=== PATIENT | female | born 1975 | race Caucasian/White ===

== ENCOUNTER 2018-06-09 13:37 | Emergency (ER) | payer OTHER ==
[2018-06-09] MEDS: NAPROXEN 250 MG TAB PO (15:13)
== END 2018-06-09 15:24 | disposition home or self-care (01) ==
LOC: M ED 13:37
DX: S33.5XXA Sprain of ligaments of lumbar spine, initial encounter (principal); X50.0XXA Overexertion from strenuous movement or load, initial encounter; Y92.89 Other specified places as the place of occurrence of the external cause; J45.909 Unspecified asthma, uncomplicated; Z91.018 Allergy to other foods; Z79.899 Other long term (current) drug therapy; Z79.51 Long term (current) use of inhaled steroids
CPT/HCPCS: 99282

== ENCOUNTER → 2019-01-09 | Outpatient (REF) | payer OTHER ==
[~2019-01-09] MED LIST: BREO1INH; DULO1CAP2; IBUP600T42 PO; LILL1TAB; LORA-243; MAPA500T2 PO; MONT10TA2; NAPR-837 PO; ROBA500T PO; VENTAER
== END ==
LOC: M LAB REF 12:32
PROVIDERS: ATTEND Plastic Surgery Surgery of the Hand
DX: D21.0 Benign neoplasm of connective and other soft tissue of head, face and neck (principal); L90.5 Scar conditions and fibrosis of skin

== ENCOUNTER 2019-01-26 05:57 | Emergency (ER) | payer OTHER ==
[~2019-01-26] VITALS: Ht 147.3 cm; Wt 63.6 kg
[2019-01-26] MEDS ORDERED: NAPROXEN 250 MG TAB PO ONE (07:15)
[2019-01-26] MEDS ORDERED: MOBI4TAB PO (09:03)
[2019-01-26 09:11] VITALS: BP 133/77
--- NOTE | 2019-01-27 07:39 | REP ---
LUMBOSACRAL SPINE: Five views lumbosacral spine performed. There is no compression fracture or malalignment with normal lumbar lordosis. There is no spondylolysis or spondylolisthesis. There is mild diffuse spurring. Disc spaces are relatively well preserved. There is sclerosis and spurring at the facets of L4-5 and L5-S1. There is a slight curvature toward the right. The posterior elements are intact. IMPRESSION: Mild diffuse degenerative changes. Electronically Signed by Kimani Carrasquillo MD 01/27/2019 08:35 A
== END 2019-01-26 09:33 | disposition home or self-care (01) ==
LOC: M ED 05:57
DX: M54.5 Low back pain (principal); X50.0XXA Overexertion from strenuous movement or load, initial encounter; Y92.89 Other specified places as the place of occurrence of the external cause; Y93.9 Activity, unspecified; Y99.0 Civilian activity done for income or pay; J45.909 Unspecified asthma, uncomplicated; Z79.899 Other long term (current) drug therapy; Z91.010 Allergy to peanuts

== ENCOUNTER 2019-06-28 14:52 | Emergency (ER) | payer OTHER ==
[~2019-06-28] VITALS: Ht 147.3 cm; Wt 64.1 kg
[~2019-06-28 14:52] MED LIST changes: -DULO1CAP2; +DULO1CAP5; +MOBI4TAB PO
[2019-06-28] MEDS ORDERED: KETOROLAC 60 MG/2 ML VIAL (J1885) IM ONE (16:15)
[2019-06-28 16:24] VITALS: BP 160/81
== END 2019-06-28 16:39 | disposition home or self-care (01) ==
LOC: M ED 14:52
DX: S76.212A Strain of adductor muscle, fascia and tendon of left thigh, initial encounter (principal); X58.XXXA Exposure to other specified factors, initial encounter; Y92.9 Unspecified place or not applicable; Y93.9 Activity, unspecified; Y99.9 Unspecified external cause status; J45.909 Unspecified asthma, uncomplicated; Z91.018 Allergy to other foods
CPT/HCPCS: 96372; 99283; J1885

== ENCOUNTER → 2019-12-26 | Outpatient (CLI) | payer OTHER ==
[~2019-12-26] MED LIST changes: -MONT10TA2; +MONT10TA4
--- NOTE | 2019-12-26 16:30 | REP ---
REASON FOR EXAM: Back pain due to strain with bilateral lower extremity radicular symptoms. COMPARISON: 01/26/2019 Vertebral body height and alignment is unchanged. There is no spondylolysis or spondylolisthesis. There is posterior disc space narrowing at every level, increased only slightly compared to the prior exam if at all. Stable degenerative facet joint changes are seen at L4-5 and L5-S1 bilaterally. The pedicles are again seen to be intact bilaterally. IMPRESSION: Essentially stable exam with findings as described above. Electronically Signed by Prosper Padgett DO 12/26/2019 04:58 P
== END ==
LOC: M WUC 14:00
PROVIDERS: ATTEND Physician Assistant
DX: S39.012A Strain of muscle, fascia and tendon of lower back, initial encounter (principal); X58.XXXA Exposure to other specified factors, initial encounter; Y92.89 Other specified places as the place of occurrence of the external cause; Y93.9 Activity, unspecified; Y99.9 Unspecified external cause status

== ENCOUNTER → 2021-06-01 | Outpatient (REF) ==
[~2021-06-01] MED LIST changes: +MONT10TA10; -MONT10TA4
== END ==
LOC: M EMP 07:44
PROVIDERS: ATTEND Family Medicine
DX: Z20.828 Contact with and (suspected) exposure to other viral communicable diseases (principal)

== ENCOUNTER → 2022-11-09 | Outpatient (CLI) | payer OTHER ==
[~2022-11-09] MED LIST changes: -MONT10TA10; +MONT10TA97
== END ==
LOC: M WUC 12:49
PROVIDERS: ATTEND Physician Assistant
DX: R06.02 Shortness of breath (principal); R05.1 Acute cough

== ENCOUNTER 2025-02-25 12:12 | Emergency (ER) | payer OTHER ==
[~2025-02-25] VITALS: Ht 147.3 cm; Wt 65.9 kg
[2025-02-25] MEDS ORDERED: ALBU8.5H (12:56)
[2025-02-25 14:34] VITALS: BP 185/89; TEMP 97.9; O2SAT 99
== END 2025-02-25 15:51 | disposition home or self-care (01) ==
LOC: M ED 12:12
DX: M25.532 Pain in left wrist (principal); Y99.0 Civilian activity done for income or pay; F41.9 Anxiety disorder, unspecified; F32.A Depression, unspecified; Z91.010 Allergy to peanuts; Z79.899 Other long term (current) drug therapy

== ENCOUNTER → 2025-08-04 | Outpatient (REF) ==
[~2025-08-04] MED LIST changes: +ALBU8.5H
== END ==
LOC: M EMP 09:28
PROVIDERS: ATTEND Family Medicine
DX: Z11.2 Encounter for screening for other bacterial diseases (principal)